=== PATIENT | male | born 1950 | race Caucasian/White ===

== ENCOUNTER 2021-06-18 19:36 | Emergency (ER) | payer SELFPAY ==
--- NOTE | 2021-06-18 20:49 | ED ---
General Adult HPI - General Chief complaint: Recheck/Abnormal Lab/Rx Stated complaint: Needs Covid test for [place] Source: patient Mode of arrival: ambulatory Limitations: no limitations - History of Present Illness Initial comments: 70-year-old male presents to the emergency department requesting Covid test. Patient is originally from [place] and came over to [place] today for the football game. He had a Covid test performed in [place]. [place] have the proper Covid test. He present today asymptomatic requesting Covid swab. The patient is Covid vaccinated. No alleviating, precipitating or modifying factors - Related Data Allergies Allergy/AdvReac Type Severity Reaction Status Date / Time red (food color) Allergy Unknown Verified 06/18/21 19:50 Review of Systems ROS Statement: Those systems with pertinent positive or pertinent negative responses have been documented in the HPI. ROS Other: All systems not noted in ROS Statement are negative. Past Medical History Past Medical History: No Reported History History of Any Multi-Drug Resistant Organisms: None Reported Past Surgical History: No Surgical Hx Reported Past Psychological History: No Psychological Hx Reported Smoking Status: Never smoker Past Alcohol Use History: None Reported Past Drug Use History: None Reported General Exam Limitations: no limitations Course Vital Signs 06/18/21 06/18/21 19:48 21:13 Temperature 98.2 F 98.6 F Pulse Rate 76 78 Respiratory 18 20 Rate Blood Pressure 151/86 148/88 O2 Sat by Pulse 95 98 Oximetry Medical Decision Making - Medical Decision Making Upon arrival patient was swabbed for Covid which does come back negative. Patient given copies of results and discharged home - Lab Data Lab Results 06/18/21 Range/Units 19:48 Coronavirus (PCR) Not Detected (Not Detectd) Disposition Clinical Impression: Lab test negative for COVID-19 virus Disposition: HOME SELF-CARE Condition: Stable Instructions (If sedation given, give patient instructions): Normal Exam (ED) Additional Instructions: Your Covid test was negative Is patient prescribed a controlled substance at d/c from ED?: No Referrals: None,Stated [Primary Care Provider] - 1-2 days Time of Disposition: 20:49
[2021-06-18 21:14] VITALS: BP 148/88; PULSE 78; RESP 20; TEMP 98.6
== END 2021-06-18 21:13 | disposition home or self-care (01) ==
LOC: EC 19:36
DX: Z20.822 Contact with and (suspected) exposure to COVID-19 (principal)
CPT/HCPCS: 87635; 99282